=== PATIENT | female | born 1950 | race Caucasian/White ===

== ENCOUNTER 2022-04-30 13:19 | Emergency (ER) | payer MEDICARE, OTHER ==
[~2022-04-30] VITALS: Ht 165.1 cm; Wt 68.0 kg
[2022-04-30 13:51] VITALS: BP 100/62
--- NOTE | 2022-04-30 14:00 | NUR ---
Right LE iced
[2022-04-30] MEDS ORDERED: IBUPROFEN 600 MG TABLET PO ONE (15:00)
[2022-04-30] MEDS ORDERED: IBUPROFEN 600 MG TABLET ONE (15:10)
== END 2022-04-30 19:15 | disposition home or self-care (01) ==
LOC: ER 13:24
DX: S82.831A Other fracture of upper and lower end of right fibula, initial encounter for closed fracture (principal); E78.5 Hyperlipidemia, unspecified; X50.1XXA Overexertion from prolonged static or awkward postures, initial encounter; Y93.89 Activity, other specified; Y92.89 Other specified places as the place of occurrence of the external cause; Y99.8 Other external cause status
CPT/HCPCS: 73610-TC; 73630-TC